=== PATIENT | male | born 1990 | race Caucasian/White ===

== ENCOUNTER 2020-10-10 08:31 | Emergency (ER) | payer BC, SELFPAY ==
[2020-10-10 08:45] VITALS: BP 143/88; PULSE 109; RESP 16; TEMP 36.6; O2SAT 99
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
== END 2020-10-10 09:21 | disposition home or self-care (01) ==
PROVIDERS: Emergency Provider Nurse Practitioner
DX: S46.911A Strain of unspecified muscle, fascia and tendon at shoulder and upper arm level, right arm, initial encounter (principal); X50.3XXA Overexertion from repetitive movements, initial encounter; Y99.0 Civilian activity done for income or pay; S39.012A Strain of muscle, fascia and tendon of lower back, initial encounter; X58.XXXA Exposure to other specified factors, initial encounter
CPT/HCPCS: 99213; G0463